=== PATIENT | female | born 1970 | race Caucasian/White ===

== ENCOUNTER → 2016-12-13 | Outpatient (CLI) | payer BC ==
--- NOTE | 2016-12-13 10:43 | US ---
EXAM DESCRIPTION: US ABDOMEN CLINICAL HISTORY: RUQ PAIN COMPARISON: None Available. TECHNIQUE: Complete abdominal ultrasound was performed utilizing imaging. [employer] static images were saved to the patient's medical record. FINDINGS: There is increased echogenicity of the liver. No intrahepatic biliary duct dilatation. No hepatic mass. The gallbladder is well seen and unremarkable. There are no gallstones. There is no gallbladder wall thickening. The common bile duct is normal in caliber measuring 4. The incompletely imaged (due to overlying bowel gas and soft tissues) pancreas and the spleen are unremarkable. The kidneys are normal in size, shape, and echotexture. The IVC and the proximal aorta are unremarkable. IMPRESSION: Echogenic liver compatible with fatty infiltration. No evidence of cholelithiasis or cholecystitis. Electronically signed by: Donovan Bacon MD 12/13/2016 10:42
== END ==
LOC: US 09:13
PROVIDERS: ATTEND Surgery
DX: R10.11 Right upper quadrant pain (principal)

== ENCOUNTER → 2016-12-25 | Outpatient (CLI) | payer BC | END | disposition home or self-care (01) | LOC: GMAL 10:42 | PROVIDERS: ATTEND Family Medicine | DX: D50.9 Iron deficiency anemia, unspecified (principal) ==

== ENCOUNTER → 2017-07-02 | Outpatient (CLI) | payer BC | END | disposition home or self-care (01) | LOC: GMAL 10:32 | PROVIDERS: ATTEND Family Medicine | DX: Z00.01 Encounter for general adult medical examination with abnormal findings (principal) ==

== ENCOUNTER → 2017-10-03 | Outpatient (CLI) | payer BC | END | disposition home or self-care (01) | LOC: GMAL 10:26 | PROVIDERS: ATTEND Family Medicine | DX: D50.9 Iron deficiency anemia, unspecified (principal) ==

== ENCOUNTER → 2018-06-26 | Outpatient (CLI) | payer BC | LOC: GMAL 10:10 | PROVIDERS: ATTEND Family Medicine | DX: Z00.01 Encounter for general adult medical examination with abnormal findings (principal); D50.8 Other iron deficiency anemias ==

== ENCOUNTER → 2019-08-20 | Outpatient (CLI) | payer BC ==
--- NOTE | 2019-08-25 15:37 | MAM ---
EXAM DESCRIPTION: 3D Screening BILATERAL : Digital Mammography. CLINICAL HISTORY: 49 years Female SCREENING . No complaints. No personal or family history of breast cancer. Menarche age 13. Childbirth. Hysterectomy 2 years ago. No HRT. Lifetime risk of developing breast cancer (Tyrer-Cuzick model)(%): 8.3. COMPARISON: 2-D digital screening bilateral mammography 03/08/2011. TECHNIQUE: Bilateral CC and MLO projection full-field images, digital tomosynthesis mammographic technique. Bilateral digital 2-D full-field MLO images. CAD not available for tomosynthesis or 2-D images. FINDINGS: The breast parenchymal density pattern is: Heterogeneously dense breast tissue, which may obscure small masses. No skin thickening or nipple retraction. Bilateral solitary microcalcifications. Bilateral vascular calcifications. Bilateral intramammary lymph nodes. Bilateral skin moles indicated by skin markers. No new focal, stellate mass or density, focal asymmetry , and no suspicious microcalcifications bilaterally. Stable mammograms compared to prior study. Taking into account, differences in mammographic technique. IMPRESSION: Benign exam. BIRAD CATEGORY: 2 BENIGN FINDINGS. RECOMMENDATIONS: FOLLOW UP: Routine digital bilateral mammographic screening, one year interval from August 2019. Written communication explaining the IMPRESSION and follow-up, will be mailed to the patient and referring health care provider. According to the [employer], yearly mammograms are recommended starting at age 40 and continuing as long as a woman is in good health. Any breast change noted on a breast self-exam should be reported promptly to the patient's healthcare provider. Breast MRI is recommended for women with an approximately 20-25% or greater lifetime risk of breast cancer, including women with a strong family history of breast or ovarian cancer and women who have been treated for Hodgkin's disease. A negative mammographic report should not delay tissue diagnosis in patients with significant clinical history or physical findings. Extremely dense breast tissue limits the sensitivity of digital mammography. Electronically signed by: Tenzin Medel MD 08/25/2019 3:34 PM CDT
== END ==
LOC: MAMMO 16:00
PROVIDERS: ATTEND Family Medicine
DX: Z12.31 Encounter for screening mammogram for malignant neoplasm of breast (principal)

== ENCOUNTER 2020-01-27 | Day surgery (SDC) | payer BC | END 2020-01-27 09:35 | disposition home or self-care (01) | DX: K62.5 Hemorrhage of anus and rectum (principal); D12.3 Benign neoplasm of transverse colon; K57.30 Diverticulosis of large intestine without perforation or abscess without bleeding; K64.8 Other hemorrhoids; Z90.710 Acquired absence of both cervix and uterus; Z79.899 Other long term (current) drug therapy | CPT/HCPCS: 00811; 45385; J3490; J7120 ==